=== PATIENT | female | born 1995 | race Caucasian/White ===

== ENCOUNTER 2017-01-28 03:16 | Emergency (ER) | payer OTHER ==
[~2017-01-28] VITALS: Ht 165.1 cm; Wt 72.9 kg
[2017-01-28 03:34] VITALS: TEMP 36.6; Ht 165.1 cm; Wt 72.9 kg
--- NOTE | 2017-01-28 03:53 | EMERGENCY ROOM VISIT NOTE ---
History Report prepared by Jennifer: Wiliam Mccabe Under the Supervision of: Dr. Moira Lee M.D. First contact with patient: 03:23 Chief Complaint: ALCOHOL OVERDOSE Stated Complaint: ALCOHOL OVERDOSE Nursing Triage Summary: found on someone stoop sleeping History of Present Illness The patient is a 21 year old female who presents to the Emergency Room via EMS with complaints of an alcohol overdose occurring earlier tonight. Per the EMS staff, the patient was found on a stoop sleeping on the stairs, and they say that she was drinking liquor. History is limited due to alcohol intoxication. Source of History: EMS History Limited By: intoxication Onset: earlier tonight Position: other (global) Quality: other (alcohol intoxication) Review of Systems HPI is limited due to alcohol intoxication. Past Medical & Surgical History is limited due to alcohol intoxication Family History History is limited due to alcohol intoxication Social History Smoking Status: Unknown if Ever Smoked Marital Status: single Occupation Status: [employer] student Current/Historical Medications Unable to Obtain Active Prescriptions or Reported Meds Physical Exam Vital Signs Date Time Temp Pulse Resp B/P Pulse Ox O2 Delivery O2 Flow Rate FiO2 01/28/17 06:26 105 16 108/52 94 Room Air 01/28/17 05:09 85 16 97/51 95 Room Air 01/28/17 04:14 90 14 96/58 94 Room Air 01/28/17 03:34 36.6 91 16 117/74 94 Room Air 01/28/17 03:22 116 Physical Exam Vital signs reviewed. General: Odor of EtOH in the breath, disheveled 21-year-old female. No signs of trauma. HEENT: Mild scleral injection bilaterally, PERRLA, neck supple, dry mucous membranes. Cardiovascular: Regular rate and rhythm, no extra sounds. Pulmonary: Clear to auscultation bilaterally, normal work of breathing. Abdomen: Soft, nontender, nondistended, positive bowel sounds. Musculoskeletal: Upper and lower extremities atraumatic, no peripheral edema Skin: Warm, dry, no rash. Atraumatic. Neurologic: Patient is currently nonverbal. Medical Decision & Procedures Laboratory Results Test 01/28/17 04:07 Ethyl Alcohol mg/dL 364.0 mg/dl (0-3) Laboratory results per my review. ED Course 0342: Past medical records reviewed. The patient was evaluated in room B12. A complete history and physical examination was performed. 0700: The patient was signed out to Dr. Aguilar at the change of shifts. Medical Decision The differential diagnosis of the patient's presentation includes alcohol ingestion, illicit drug use, trauma, and dehydration. This patient was evaluated and appeared to be in no significant distress. The patient is clinically intoxicated. She is minimally verbal. She has vomited. The patient was placed on assembler fluorescent lights with aspiration precautions maintained. There is no evidence of trauma, nor is the report of trauma. Blood alcohol level is 364. Patient was observed in the emergency department. She was signed out to Dr. Aguilar at the change of shift pending a more sober state. Impression Primary Impression: Alcohol intoxication Scribe Attestation The scribe's documentation has been prepared under my direction and personally reviewed by me in its entirety. I confirm that the note above accurately reflects all work, treatment, procedures, and medical decision making performed by me. Departure Information Dispostion Still a Patient Prescriptions Unable to Obtain Active Prescriptions or Reported Meds Forms HOME CARE DOCUMENTATION FORM, IMPORTANT VISIT INFORMATION Patient Instructions [facility] [employer] Students and Alcohol Related Visits, My [facility] Additional Instructions Diagnosis: Alcohol intoxication Drink plenty of clear liquids, such as water or Gatorade. Follow-up with [facility] services as directed. Tylenol 650 mg every 6 hours as needed for pain. Avoid excessive alcohol consumption. Return to emergency for worsening of symptoms or medical concerns. Problem Qualifiers Primary Impression: Alcohol intoxication Complication of substance-induced condition: with delirium Qualified Codes: F10.121 - Alcohol abuse with intoxication delirium
[2017-01-28 08:12] VITALS: BP 106/69; PULSE 115; O2SAT 97
== END 2017-01-28 08:26 | disposition home or self-care (01) ==
LOC: EDBD 03:16 → C.EDB 03:18
DX: F10.121 Alcohol abuse with intoxication delirium (principal); Y90.8 Blood alcohol level of 240 mg/100 ml or more